=== PATIENT | female | born 1995 | race Caucasian/White ===

== ENCOUNTER 2017-05-09 06:39 | Day surgery (SDC) | payer OTHER ==
[~2017-05-09] VITALS: Ht 154.9 cm; Wt 89.8 kg
[2017-05-09] MEDS ORDERED: fentaNYL 0.05 MG/ML VIAL ONE (07:25)
[2017-05-09] MEDS ORDERED: MIDAZOLAM 2 MG/2 ML VIAL ONE ×2 (07:26)
[2017-05-09] MEDS ORDERED: diphenhydrAMINE 50 MG/ML VIAL ONE (07:26)
[2017-05-09] MEDS ORDERED: MORPHINE SULFATE 2 MG/ML SYR IVP PRN (08:05)
[2017-05-09] MEDS ORDERED: ONDANSETRON 4 MG/2 ML VIAL IV PRN (08:05)
[2017-05-09] MEDS ORDERED: HYDROcodone/APAP 5/325 MG 1 TAB TAB PO PRN (08:05)
[2017-05-09] MEDS ORDERED: MORPHINE SULFATE 4 MG/ML SYR IV PRN (08:05)
[2017-05-09] MEDS ORDERED: fentaNYL 0.05 MG/ML VIAL IVP ONE (08:50)
[2017-05-09] MEDS ORDERED: MIDAZOLAM 2 MG/2 ML VIAL IVP ONE (08:50)
== END 2017-05-09 10:00 | disposition home or self-care (01) ==
LOC: MOR 06:39 → MMU 06:45 → MOR 10:00
PROVIDERS: ATTEND Surgery
DX: K21.9 Gastro-esophageal reflux disease without esophagitis (principal); I10 Essential (primary) hypertension; G43.909 Migraine, unspecified, not intractable, without status migrainosus; Z88.0 Allergy status to penicillin; Z80.41 Family history of malignant neoplasm of ovary; Z82.49 Family history of ischemic heart disease and other diseases of the circulatory system
CPT/HCPCS: 36415; 43239; 86677; J2250; J3010; J7030; J7120; J1200